=== PATIENT | female | born 1965 | race Caucasian/White ===

== ENCOUNTER 2016-11-20 11:55 | Day surgery (SDC) | payer BC ==
[~2016-11-20] VITALS: Ht 162.6 cm; Wt 68.2 kg
--- NOTE | ~2016-11-20 | OP ---
PATIENT NAME: TL SHARMA MEDICAL RECORD: [id number] :61 LOCATION:[facility] ADMISSION DATE: SURGEON: HILARIA TORRES DO DATE OF OPERATION: 11/20/2016 PROCEDURE: Colonoscopy. INDICATIONS FOR PROCEDURE: Screening for colorectal cancer. SCOPE: Olympus video pediatric colonoscope. MEDICATIONS: Propofol 350 mg IV and Versed 2 mg IV per anesthesia. WITHDRAWAL TIME: 7 minutes. ESTIMATED BLOOD LOSS: None. FINDINGS: Informed consent was given. The patient was made comfortable with the above medication. After reaching an adequate level of sedation by slow IV push, the patient was placed on her left side. A digital rectal examination was performed and was normal. The endoscope was then advanced under direct visualization through the anus to the terminal ileum. The scope was slowly withdrawn and the mucosa was carefully examined. There were no abnormalities on this examination. No diverticula were seen and no polyps were visualized. The endoscope was retroflexed in the rectum and no hemorrhoids were visualized. The scope was withdrawn from the patient. The patient tolerated the procedure well and there were no complications. IMPRESSION: Normal screening colonoscopy. PLAN AND RECOMMENDATIONS: 1. Recall colonoscopy in 7 years for colon cancer screening purposes. 2. Discharge home when recovery parameters are met. 3. Continue current diet. 4. Continue current medications. TRANSINT:[id number] Voice Confirmation ID: [id number] DOCUMENT ID: [id number] HILARIA TORRES DO CC: [id number] DICTATION DATE: 11/20/16 1531 PHOTOGRAPHER FINISH: 11/21/16 0028 [facility] 11/20/16 [place] [id number]
[2016-11-20 12:43] LABS: HEMATOCRIT 40.2 % (36.0-48.0); HEMOGLOBIN 12.8 g/dL (12-16); MCH 27.1 pg (26.0-34.0); MCHC 31.8 g/dL (31.0-37.0); MCV 85.2 fL (80.0-100.0); MEAN PLATELET VOLUME 10.5 fL (7.4-10.4); RBC 4.72 10x6/uL (4.00-5.40); RDW 15.3 % (11.5-14.5); WBC 5.9 10x3/uL (4.8-10.8)
[2016-11-20 13:01] LABS: HCG SERUM NEGATIVE (NEGATIVE)
[2016-11-20] MEDS ORDERED: XANAX0.25 MG PO (14:04)
[2016-11-20 14:08] VITALS: BP 116/71; Ht 162.6 cm; Wt 68.2 kg
--- NOTE | 2016-11-20 17:24 | NUR ---
1545- PT A BIT DROWSY, O2 SAT > 92%. VSS. WILL MONITOR. 1600- FULL LIQUIDS OFFERED. PT SITTING UP WITH HOB ELEVATED. 1635- IV D/C'D, PT TOLERATED. CATHETER INTACT. 1655- DISCHARGE INSTRUCTIONS COMPLETED, PT VERBALIZED UNDERSTANDING. PAPERWORK SIGNED. 1700- PT DISCHARGED VIA WHEELCHAIR WITH DAUGHTER.
== END 2016-11-20 17:00 | disposition home or self-care (01) ==
LOC: D.OPS 11:55
PROVIDERS: Anesthesiology
DX: Z12.11 Encounter for screening for malignant neoplasm of colon (principal)

== ENCOUNTER → 2020-09-17 22:51 | Outpatient (CLI) | payer BC ==
[2016-11-20 14:08] VITALS: BMI 25.8
[~2020-09-17 22:51] MED LIST: XANAX0.25 MG PO
== END | disposition home or self-care (01) ==
LOC: D.MAMMO 08-29 15:45
PROVIDERS: ATTEND Family Medicine
DX: Z12.31 Encounter for screening mammogram for malignant neoplasm of breast (principal)